=== PATIENT | female | born 1960 | race Caucasian/White ===

== ENCOUNTER 2016-03-10 08:05 | Day surgery (SDC) | payer BC ==
[~2016-03-10] VITALS: Ht 157.5 cm; Wt 117.9 kg
[~2016-03-10 08:05] MED LIST: CALTRATE 6001 TABLE1 PO; DIOVAN HCT 11 TABLE1 PO; FIORICET,ESG1 TABLET PO; Flonase BOTH NARES; HYZAAR 50-121 TABLET PO; NEURONTIN100 MG PO; PROzac PO; Protonix PO; Proventil,Ventolin H IH; VOLTAREN-XR100 MG PO; Voltaren PO; Zocor PO
== END 2016-03-10 09:12 | disposition home or self-care (01) ==
LOC: PAIN 08:05 → SDC 08:45 → PAIN 09:12
PROC: 3E0S33Z Introduction of Anti-inflammatory into Epidural Space, Percutaneous Approach (ICD-10-PCS; principal; 2016-03-10)
DX: M54.16 Radiculopathy, lumbar region (principal); F41.9 Anxiety disorder, unspecified; G62.9 Polyneuropathy, unspecified; Z91.040 Latex allergy status; I10 Essential (primary) hypertension; E78.5 Hyperlipidemia, unspecified; K21.9 Gastro-esophageal reflux disease without esophagitis; G47.30 Sleep apnea, unspecified; J45.909 Unspecified asthma, uncomplicated; F32.9 Major depressive disorder, single episode, unspecified; Z81.8 Family history of other mental and behavioral disorders; Z82.49 Family history of ischemic heart disease and other diseases of the circulatory system; Z80.8 Family history of malignant neoplasm of other organs or systems; Z80.3 Family history of malignant neoplasm of breast
CPT/HCPCS: J1100; J2250

== ENCOUNTER 2016-08-17 08:09 | Day surgery (SDC) | payer BC ==
[~2016-08-17] VITALS: Ht 157.5 cm; Wt 116.8 kg
[~2016-08-17 08:09] MED LIST changes: +FLONASE ALLERG9.9 ML BOTH NARES; +PROAIR HFA8.5 GM IH; +PROTONIX40 MG PO; +PROVENTIL,VENTOL2 MG PO; +PROZAC20 MG PO; +SYNTHROID25 MCG PO; +VITAMIN D31000 UNIT PO; +ZOCOR40 MG PO
== END 2016-08-17 10:00 | disposition home or self-care (01) ==
LOC: PAIN 08:09 → SDC 08:45 → PAIN 08:45
DX: M47.26 Other spondylosis with radiculopathy, lumbar region (principal); M54.42 Lumbago with sciatica, left side; I10 Essential (primary) hypertension; J45.909 Unspecified asthma, uncomplicated; K21.9 Gastro-esophageal reflux disease without esophagitis; G62.9 Polyneuropathy, unspecified; E78.5 Hyperlipidemia, unspecified; G47.33 Obstructive sleep apnea (adult) (pediatric); M25.511 Pain in right shoulder; Z87.891 Personal history of nicotine dependence
CPT/HCPCS: J1030; J2250; J3010; S0020

== ENCOUNTER 2016-08-27 11:03 | Day surgery (SDC) | payer BC ==
[~2016-08-27] VITALS: Ht 157.5 cm; Wt 116.6 kg
== END 2016-08-27 12:55 | disposition home or self-care (01) ==
LOC: PAIN 11:03 → SDC 11:45 → PAIN 12:55
DX: M47.26 Other spondylosis with radiculopathy, lumbar region (principal); I10 Essential (primary) hypertension; K21.9 Gastro-esophageal reflux disease without esophagitis; G62.9 Polyneuropathy, unspecified; E03.9 Hypothyroidism, unspecified; J45.909 Unspecified asthma, uncomplicated; Z87.891 Personal history of nicotine dependence
CPT/HCPCS: J1030; J2250; J3010; S0020

== ENCOUNTER 2016-09-17 08:51 | Day surgery (SDC) | payer BC ==
[~2016-09-17] VITALS: Ht 157.5 cm; Wt 116.6 kg
== END 2016-09-17 10:55 | disposition home or self-care (01) ==
LOC: PAIN 08:51 → SDC 09:15 → PAIN 10:55
DX: M46.1 Sacroiliitis, not elsewhere classified (principal); I10 Essential (primary) hypertension; E03.9 Hypothyroidism, unspecified; K21.9 Gastro-esophageal reflux disease without esophagitis
CPT/HCPCS: J1030; J2250; J3010; S0020